=== PATIENT | female | born 1990 | race Caucasian/White ===

== ENCOUNTER 2016-08-21 21:07 | Emergency (ER) ==
[2016-08-21] MEDS ORDERED: MARCAINE 0.5% PF INJ ONE (23:40)
[2016-08-21] MEDS ORDERED: XYLOCAINE 1% INJ ONE (23:40)
[2016-08-21] MEDS ORDERED: XYLOCAINE-MPF 1% 10 ML ONE (23:43)
--- NOTE | 2016-08-21 23:50 | PROVIDER DOCUMENTATION ---
[facility] General - General Chief Complaint: Toothache Stated Complaint: TOOTHACHE Time Seen by Provider: 08/21/16 23:32 Source: patient Allergies/Adverse Reactions: Patient Allergies Allergy/AdvReac Type Severity Reaction Status Date / Time No Known Allergies Allergy Verified 08/21/16 23:50 Home Medications: Home Medication List Medication Instructions Recorded Confirmed Last Taken Type No Home Medications 08/21/16 08/21/16 Unknown History - History of Present Illness-[facility] General Nature of Presenting Problem: Pt is a 25 y/o F c chief complaint of dental pain to the R side of her mouth to the upper and lower molars. Pt has extensive dental decay. She was seen at [facility] and states she received abx and tylenol c codein but there are no pharmacies open and she is in severe pain. Pt denies fever, trismus, difficulty managing oral secretions. On arrival, pt is in minimal distress. Review of Systems - Adult - REVIEW OF SYSTEMS - ADULT Constitutional: reports: no symptoms reported. denies: chills, fatique Eyes: reports: no symptoms reported. denies: blurred vision, double vision Ears, Nose, Mouth & Throat: reports: mouth/dental pain. denies: ear pain, nose pain, throat pain Cardiovascular: reports: no symptoms reported. denies: chest pain, orthopnea Respiratory: reports: no symptoms reported. denies: cough, shortness of breath Gastrointestinal: reports: no symptoms reported. denies: abdominal pain, nausea Genitourinary: reports: no symptoms reported. denies: dysuria, hematuria Musculoskeletal: reports: no symptoms reported. denies: joint pain, joint swelling Integumentary: reports: no symptoms reported. denies: itching, rash Neurological: reports: no symptoms reported. denies: numbness, paresthesia Psychiatric: reports: no symptoms reported. denies: anxiety, emotional problems Endocrine: reports: no symptoms reported. denies: cold intolerance, heat intolerance Hematologic/Lymphatic: reports: no symptoms reported. denies: blood clots, low blood count Allergic/Immunologic: reports: no symptoms reported. denies: allergic reactions , food allergy All Other Systems: Reviewed and Negative Past History - Adult - PAST MEDICAL HISTORY-ADULT Review of Records: reports: Old Records Reviewed, Nursing Assessment Review, Medications Reviewed, Social history reviewed & non-contributory. Major Childhood Illnesses: reports: denies history Cardiovascular: reports: denies history Respiratory: reports: denies history Gastrointestinal: reports: denies history Obstetrical/Gynecological: reports: denies history Genitourinary: reports: denies history Musculoskeletal: reports: denies history Neurological: reports: denies history Endocrine/Immune: reports: denies history Other Conditions: reports: denies history - PRIOR SURGERIES/PROCEDURES Surgical/Procedure History: reports: recent surgery, cholecystectomy, BTL, breast - PRIOR HOSPITALIZATIONS Prior Hospitalizations: reports: none - IMMUNIZATION STATUS Childhood Immunizations: See Nurse Assessment Flu Vaccine: See Nurse Assessment - FAMILY HISTORY Family History: reviewed, not pertinent - SOCIAL HISTORY Smoking: denies Substance Use: none/never Alcohol Use Frequency: never Living Situation: family Physical Exam- EENT - Physical Exam EENT Initial Vital Signs Reviewed: Yes General Appearance: appears well, alert, no apparent distress Eye Exam: bilateral eye: normal inspection, PERRL, EOMI Ear Exam: bilateral ear: auricle normal, canal normal, TM normal Nasal Exam: normal inspection Throat Exam: normal mouth inspection, pharynx normal, dental tenderness. negative: pharynx tenderness, tongue swollen, trismus, uvula swelling, voice changes Mouth,Throat: 1 - extensive dental decay, no descrete abscess Neck: non-tender, full range of motion, supple Respiratory: chest non-tender, lungs clear, normal breath sounds Cardiovascular: normal peripheral pulses, regular rate, rhythm, no edema Abdominal Exam: normal bowel sounds, non tender, soft Back Exam: normal inspection, no CVA tenderness, no vertebral tenderness Extremity: normal range of motion, non-tender, normal gait Integumentary: normal color, normal turgor, warm/dry Neurologic: grossly normal, no motor/sensory deficits Psych/Mental Status: normal mood/affect, normal thought content, normal thought process, oriented x 3 Progress - PLAN OF CARE/RESULTS Progress/Plan/Lab Results: Orders Category Date Time Status Bupivacaine Pf 0.5% [Marcaine 0.5% Pf] Med 08/21/16 23:40 Discontinued 5 ml INJ NOW ONE Lidocaine 1% [Xylocaine 1%] Med 08/21/16 23:40 Discontinued 5 ml INJ NOW ONE Vital Signs - 24 hr 08/21/16 21:10 Temperature 97.9 F Pulse Rate 73 Respiratory 18 Rate Blood Pressure 140/79 O2 Sat by Pulse 100 Oximetry Procedures - ENT PROCEDURES Nerve Block: Mandibular, Dental Anesthetic: 0.5%, 1%, Lidocaine/Xylocaine, Bupivicaine/Marcaine Volume of Anesthetic (ml's): 10 Procedure Comment: WELL TOLERATED Departure - Departure Time of Disposition Order: 23:42 DIAGNOSIS: Pain, dental Disposition: HOME 01 Certified Medical Emergency: Emergent Condition: Stable Additional Instructions: ED Follow Up Instructions: You have been treated by a care provider in the Emergency Department. These instructions are being provided to you so you can have an understanding of how to care for yourself upon discharge. Upon discharge from the Emergency Department, you are responsible for making arrangements for follow-up care by a physician of your choice. Take all prescribed medications as directed. Return to the Emergency Department immediately for any new or worsening symptoms. You may call the Physician Referral phone number at [phone] to obtain a list of Physicians who are taking new patients. Referrals: Cuate Norris MD [STAFF PHYSICIAN] - Forms: Return to School/Parent Work Instructions: Dental Pain, [id number] Attestation - Physician/ SILVINO Attestation Patient care was provided by Advanced Practice Provider:: Yes Advanced Practice Provider:: Dagoberto Ayala Advanced Practice Provider documentation review:: The Mid-level provider documentation, treatment plan and medical decision making was reviewed by the physician who agrees with all treatment and medical decision making by the MLP.
[2016-08-22] VITALS: BP 123/72
== END 2016-08-21 23:55 | disposition home or self-care (01) ==
LOC: P.ED 21:07
DX: K08.89 Other specified disorders of teeth and supporting structures (principal); K02.9 Dental caries, unspecified
CPT/HCPCS: S0020